=== PATIENT | male | born 1935 | race Caucasian/White ===

== ENCOUNTER 2023-01-08 10:01 | Emergency (ER) | payer OTHER ==
[~2023-01-08] VITALS: Ht 180.3 cm; Wt 92.5 kg
[2023-01-08 10:08] VITALS: BP 147/87
== END 2023-01-08 11:07 | disposition home or self-care (01) ==
LOC: ER 10:01
DX: R09.81 Nasal congestion (principal); R09.82 Postnasal drip; Z88.0 Allergy status to penicillin
CPT/HCPCS: 99282

== ENCOUNTER 2024-12-16 15:28 | Emergency (ER) | payer OTHER ==
[~2024-12-16] VITALS: Ht 188 cm; Wt 81.7 kg
[2024-12-16 15:32] VITALS: BP 157/94
== END 2024-12-16 15:37 | disposition home or self-care (01) ==
LOC: ER 15:28
DX: T81.89XA Other complications of procedures, not elsewhere classified, initial encounter (principal); Z85.820 Personal history of malignant melanoma of skin; Z88.0 Allergy status to penicillin
CPT/HCPCS: 99282

== ENCOUNTER 2025-06-15 11:08 | Emergency (ER) | payer OTHER ==
[~2025-06-15] VITALS: Ht 180.3 cm; Wt 90.7 kg
[2025-06-15 12:33] LABS: BASOPHILS ABSOLUTE AUTO 0.08 K/mm3 (0.00-0.23); BASOPHILS PERCENT AUTO 1 % (0-2); EOSINOPHILS ABSOLUTE AUTO 0.42 K/mm3 (0.00-0.68); EOSINOPHILS PERCENT AUTO 5 % (0-6); Hematocrit 39.1 % (37.0-53.0); Hemoglobin 14.0 g/dL (13.5-17.5); IMMATURE GRAN ABSOLUTE AUTO 0.05 K/mm3 (0.00-0.10); IMMATURE GRAN PERCENT AUTO 1 % (0-1); LYMPHOCYTES ABSOLUTE AUTO 0.93 K/mm3 (0.84-5.20); LYMPHOCYTES PERCENT AUTO 10 % (21-46); MONOCYTES ABSOLUTE AUTO 1.10 K/mm3 (0.16-1.47); MONOCYTES PERCENT AUTO 12 % (4-13); Mean Corpuscular HGB Conc 35.8 g/dL (31.5-36.5); Mean Corpuscular Volume 88 fL (80-100); NEUTROPHILS ABSOLUTE AUTO 6.82 K/mm3 (1.96-9.15); NEUTROPHILS PERCENT AUTO 73 % (41-73); NRBC ABSOLUTE 0.00 K/mm3 (0.00-0.02); NRBC Auto 0.0 /100 WBC (0.0-0.2); Platelet Count 266 K/mm3 (150-400); RDW Coefficient Variation 11.9 % (11.7-14.2); RDW Standard Deviation 38.4 fL (35.1-46.3)
[2025-06-15 12:48] LABS: D-Dimer, Quantitative 0.68 mg/L FEU (0.00-0.52); Prothrombin Time Results 11.4 Sec (9.7-11.5)
[2025-06-15 12:54] LABS: CORONAVIRUS COVID-19 AG Negative (NEGATIVE)
[2025-06-15 12:54] LABS: Alanine Aminotransfer (ALT/SGP 20.0 U/L (12-78); Albumin, Blood 3.0 g/dL (3.4-5.0); Albumin/Globulin Ratio 1.0 (0.8-1.8); Anion Gap 10.0 mmol/L (3-11); Aspartate Aminotrans (AST/SGOT 19.0 U/L (12-37); Bilirubin, Total 0.7 mg/dL (0.1-1.0); Blood Urea Nitrogen 16.0 mg/dL (8-24); CO2, Blood 25.0 mmol/L (21-32); Calcium, Blood 8.6 mg/dL (8.5-10.1); Chloride, Blood 93.0 mmol/L (98-108); Creatinine, Blood 0.93 mg/dL (0.60-1.20); Globulin, Blood 3.1 g/dL (2.2-4.0); Glucose, Blood 108.0 mg/dL (70-99); Potassium, Blood 4.1 mmol/L (3.5-5.5); Sodium, Blood 124.0 mmol/L (136-145); Total Protein, Blood 6.1 g/dL (6.4-8.2)
[2025-06-15 13:21] LABS: Source, Urine Clean Catch
[2025-06-15] MEDS ORDERED: NS 1,000 ML IV SCH (13:25)
[2025-06-15] MEDS ORDERED: Ondansetron HCl 2 MG / ML 2ML Vial IV ONE (13:25)
[2025-06-15 13:47] LABS: Bilirubin, Urine Neg (Neg); Color, Urine Yellow (P-Yellow); Glucose Qualitative, Urine Neg (Neg); Ketones, Urine 1+ (Neg); Leukocyte Esterase, Urine Neg (Neg); Protein, Urine Neg (Neg); Specific Gravity, Urine 1.020 (1.003-1.022); Urobilinogen, Urine NORM (Normal)
[2025-06-15] MEDS ORDERED: SODBIC650 PO (14:30)
[2025-06-15 15:00] VITALS: BP 134/80
== END 2025-06-15 15:02 | disposition home or self-care (01) ==
LOC: ER 11:08
PROVIDERS: Emergency Medicine
DX: E87.1 Hypo-osmolality and hyponatremia (principal); Z88.0 Allergy status to penicillin; Z79.2 Long term (current) use of antibiotics
CPT/HCPCS: 71045; 80053; 81003; 83880; 84484; 85025; 85379; 85610; 87428-QW; 96374; 99284-25; J2405; J7030

== ENCOUNTER 2025-06-20 15:01 | Inpatient (IN) | payer OTHER ==
[~2025-06-20] VITALS: Ht 180.3 cm; Wt 92.7 kg
[2025-06-20] VITALS (11 sets, daily range): BP systolic 107–198; BP diastolic 85–118
[~2025-06-20 15:01] MED LIST: SODBIC650 PO
[2025-06-20 15:49] LABS: BASOPHILS ABSOLUTE AUTO 0.05 K/mm3 (0.00-0.23); BASOPHILS PERCENT AUTO 1 % (0-2); EOSINOPHILS ABSOLUTE AUTO 0.27 K/mm3 (0.00-0.68); EOSINOPHILS PERCENT AUTO 3 % (0-6); Hematocrit 33.4 % (37.0-53.0); Hemoglobin 12.2 g/dL (13.5-17.5); IMMATURE GRAN ABSOLUTE AUTO 0.04 K/mm3 (0.00-0.10); IMMATURE GRAN PERCENT AUTO 1 % (0-1); LYMPHOCYTES ABSOLUTE AUTO 0.90 K/mm3 (0.84-5.20); LYMPHOCYTES PERCENT AUTO 11 % (21-46); MONOCYTES ABSOLUTE AUTO 1.27 K/mm3 (0.16-1.47); MONOCYTES PERCENT AUTO 16 % (4-13); Mean Corpuscular HGB Conc 36.5 g/dL (31.5-36.5); Mean Corpuscular Volume 84 fL (80-100); NEUTROPHILS ABSOLUTE AUTO 5.38 K/mm3 (1.96-9.15); NEUTROPHILS PERCENT AUTO 68 % (41-73); NRBC ABSOLUTE 0.00 K/mm3 (0.00-0.02); NRBC Auto 0.0 /100 WBC (0.0-0.2); Platelet Count 267 K/mm3 (150-400); RDW Coefficient Variation 11.9 % (11.7-14.2); RDW Standard Deviation 36.2 fL (35.1-46.3)
[2025-06-20 16:11] LABS: Alanine Aminotransfer (ALT/SGP 22.0 U/L (12-78); Albumin, Blood 2.7 g/dL (3.4-5.0); Albumin/Globulin Ratio 0.9 (0.8-1.8); Anion Gap 11.0 mmol/L (3-11); Aspartate Aminotrans (AST/SGOT 21.0 U/L (12-37); Bilirubin, Total 0.8 mg/dL (0.1-1.0); Blood Urea Nitrogen 9.0 mg/dL (8-24); CO2, Blood 23.0 mmol/L (21-32); Calcium, Blood 8.1 mg/dL (8.5-10.1); Chloride, Blood 88.0 mmol/L (98-108); Creatinine, Blood 0.93 mg/dL (0.60-1.20); Globulin, Blood 2.9 g/dL (2.2-4.0); Glucose, Blood 99.0 mg/dL (70-99); Potassium, Blood 4.1 mmol/L (3.5-5.5); Sodium, Blood 118.0 mmol/L (136-145); Total Protein, Blood 5.6 g/dL (6.4-8.2)
[2025-06-20] MEDS ORDERED: Ondansetron HCl 2 MG / ML 2ML Vial IV ONE (16:15)
[2025-06-20] MEDS ORDERED: NS 1,000 ML IV SCH (16:15)
[2025-06-20 17:27] LABS: Source, Urine Clean Catch
[2025-06-20 17:30] LABS: Bilirubin, Urine Neg (Neg); Color, Urine Yellow (P-Yellow); Glucose Qualitative, Urine Neg (Neg); Ketones, Urine 2+ (Neg); Leukocyte Esterase, Urine 2+ (Neg); Protein, Urine 1+ (Neg); Specific Gravity, Urine 1.015 (1.003-1.022); Urobilinogen, Urine NORM (Normal)
[2025-06-20 17:41] LABS: Source, Urine Clean Catch
[2025-06-20] MEDS ORDERED: FLU VACC TS2025(65UP)/MF59C/PF 45 MCG/0.5 ML SYRINGE IM SCH (17:50)
[2025-06-20 17:52] LABS: Bilirubin, Urine Neg (Neg); Color, Urine Yellow (P-Yellow); Glucose Qualitative, Urine Neg (Neg); Ketones, Urine 2+ (Neg); Leukocyte Esterase, Urine 2+ (Neg); Protein, Urine 1+ (Neg); Specific Gravity, Urine 1.015 (1.003-1.022); Urobilinogen, Urine NORM (Normal)
[2025-06-20 18:00] LABS: Red Blood Cells, Urine 0-2 /hpf (0-2)
[2025-06-20 19:19] LABS: Influenza A/2009-H1 Not Detected (NOT DETECT); SARS-Cov-2 (COVID-19), BioFire Not Detected (NOT DETECT)
--- NOTE | 2025-06-20 19:50 | NUR ---
ARRIVAL TO UNIT PT ARRIVED TO UNIT FROM ED VIA GOURNEY. PT ABLE TO STAND/PIVOT TO BED c 1 PERSON ASSIST. PT UNSTEADY OF FEET R/T WEAKNESS. A&O x4, RESPONDS TO QUESTIONS APPROPRIATELY, RAMPART. SPO2 >93% ON RA, PT DENIES SOB. HR NSR 90s, MAP >65, SBP 160-170s, PT DENIES CHEST PAIN/PRESSURE. PT REPORTS FREQUENCY c URINATION, MIN OUTPUT c PAIN/ITCHYNESS & "LEAKING". PT REPORT NO BM SINCE 06.17.25, PT ENDORSES NAUSEA c FULL MEALS, DENIES N/V AT THIS TIME. PT REPORTS CHRONIC BACK PAIN R/T PREVIOUS SURGERIES. CALL LIGHT IN REACH, BED IN LOWEST POSITION, ORIENTED TO UNIT, NO NEEDS STATED.
[2025-06-20] MEDS ORDERED: PRIM250 PO (20:42)
[2025-06-20] MEDS ORDERED: GABA100 PO (20:44)
[2025-06-20] MEDS ORDERED: ROPI1 PO (20:47)
[2025-06-20] MEDS ORDERED: TAMS.4ER PO (20:49)
[2025-06-20] MEDS ORDERED: LEVSOD100 PO (20:50)
[2025-06-20] MEDS ORDERED: FINA5 PO (20:51)
[2025-06-20] MEDS ORDERED: ERYT.5TO BOTHEYES (20:54)
[2025-06-20 21:00] LABS: Anion Gap 12.0 mmol/L (3-11); Blood Urea Nitrogen 10.0 mg/dL (8-24); CO2, Blood 22.0 mmol/L (21-32); Calcium, Blood 8.5 mg/dL (8.5-10.1); Chloride, Blood 88.0 mmol/L (98-108); Creatinine, Blood 0.96 mg/dL (0.60-1.20); Glucose, Blood 141.0 mg/dL (70-99); Potassium, Blood 4.1 mmol/L (3.5-5.5); Sodium, Blood 118.0 mmol/L (136-145)
[2025-06-20] MEDS ORDERED: Heparin Sodium,Porcine 5,000 UNIT/0.5 ML SDV SC SCH (21:00)
--- NOTE | 2025-06-20 21:28 | NUR ---
DR CONSULT AWARE OF PT NA @ 118. CONTINUE PLAN OF CARE. ORDER GIVEN FOR HYPERTENSION. PT COMPLAINT OF CONSTIPATION, BOWEL CARE PER EMAR. PT REPORTS ABD/URINARY PAIN, MD ORDER OXY PER EMAR. ABX ORDERED.
[2025-06-20] MEDS ORDERED: Labetalol HCL 5 MG/ML 4ML Injection (Single Dose) IV PRN (21:30)
[2025-06-20] MEDS ORDERED: Polyethylene Glycol 3350 17 gm PO SCH (21:35)
[2025-06-20] MEDS ORDERED: CefTRIAXone Sodium 1,000 MG in NS 100 ML IV SCH (21:35)
[2025-06-21] VITALS (30 sets, daily range): BP systolic 89–176; BP diastolic 44–111
[2025-06-21 05:20] LABS: Anion Gap 15.0 mmol/L (3-11); Blood Urea Nitrogen 17.0 mg/dL (8-24); CO2, Blood 20.0 mmol/L (21-32); Calcium, Blood 8.8 mg/dL (8.5-10.1); Chloride, Blood 91.0 mmol/L (98-108); Creatinine, Blood 1.64 mg/dL (0.60-1.20); Glucose, Blood 165.0 mg/dL (70-99); Potassium, Blood 4.4 mmol/L (3.5-5.5); Sodium, Blood 122.0 mmol/L (136-145)
--- NOTE | 2025-06-21 07:09 | NUR ---
ASSUMPTION OF CARE PT IS A&0X4, ANSWERS QUESTIONS AND FOLLOWS COMMANDS. PT IN NSR, MAP >65. HR IN 60-70S. PT IS ON RA, SPO2 >92%. PT HAS 2 PIVS, RWR AND LAC. 3% NS AT 30ML/HR. PUREWICK IN PLACE AND ATTACHED TO SUCTION. NO BM THIS AM. NO NEEDS EXPRESSED AT THIS TIME AND CALL LIGHT WITHIN REACH.
[2025-06-21] MEDS ORDERED: Erythromycin 0.5% Opth Oint 3.5 gm BOTHEYES PRN (07:15)
--- NOTE | 2025-06-21 12:34 | NUR ---
"Spiritual Care | Pt. Request Pt. is awake and welcomes my visit. Pt. is pleasant. Facilitated a life review and established rapport as we identified that we had many things in common. Considered matters of deedee and belief, Pt. verbalized his deedee story as a young man and his present deedee connections. Pt. displayed evidence of being encourage and requested this trip motor operator notify his nondenominational. Prayed wih the Pt. Pt. verbalized gratitude for the spiritual care visit. Pts. nondenominational was notified."
[2025-06-21] MEDS ORDERED: Naphazoline/Phenir Opth Soln 15 ml BOTHEYES PRN (17:10)
[2025-06-21 18:28] LABS: Anion Gap 13.0 mmol/L (3-11); Blood Urea Nitrogen 22.0 mg/dL (8-24); CO2, Blood 21.0 mmol/L (21-32); Calcium, Blood 8.7 mg/dL (8.5-10.1); Chloride, Blood 98.0 mmol/L (98-108); Creatinine, Blood 1.83 mg/dL (0.60-1.20); Glucose, Blood 122.0 mg/dL (70-99); Potassium, Blood 4.5 mmol/L (3.5-5.5); Sodium, Blood 127.0 mmol/L (136-145)
--- NOTE | 2025-06-21 19:20 | NUR ---
SHIFT SUMMARY: ASSUMED CARE OF PT AT 1350, PT IS ALERT AND ORIENTED X 4 ABLE TO FOLLOW COMMANDS AND COMMUNICATE NEED. PT DENIES ANY PAIN AT THIS TIME. PT REMAINS IN SR WITH HR IN THE 80'S, BP STABLE, DENIES CP/PRESSURE. PT ON RA WITH SPO2 ABOVE 92% NO RESP DISTRESS NOTED. PT TOLERATING PO INTAKE, DENIES NAUSEA. PT ON 1200ML FLUID RESTRICTION. CAPELLAN PATENT, DRAINING TO GRAVITY, PALE YELLOW URINE NOTED. NO BM THIS SHIFT, BOWEL CARE MEDS GIVEN PER OCT. BED AT LOWEST LEVEL, CALL LIGHT WITHIN REACH, PLAN OF CARE ONGOING.
--- NOTE | 2025-06-21 20:00 | NUR ---
ASSUMPTION OF CARE CARE OF PT ASSUMED FOLLOWING BEDSIDE SHIFT REPORT FROM DAY RN. PT LYING IN BED IN NO APPARENT DISTRESS. ALERT AND ORIENTED. SLEETMUTE. MILD CONFUSION/DECREASED SHORT TERM MEMORY PRESENT. AFEBRILE. NO PAIN. SINUS RHYTHM IN THE 60'S AND STABLE BP. RA SATURATIONS ARE > 92%. PT IS CONSTIPATED BUT WILL ONLY AGREE TO THE CURRENT, CONSERVATIVE BOWEL REGIMEN. CAPELLAN IN PLACE FOR RETENTION DRAINING URINE TO GRAVITY. WILL REVIEW AND CONTINUE PLAN OF CARE.
[2025-06-21] MEDS ORDERED: MELATONIN5 M1 PO (23:47)
[2025-06-22] VITALS (24 sets, daily range): BP systolic 100–174; BP diastolic 42–89
[2025-06-22 03:28] LABS: Hematocrit 30.7 % (37.0-53.0); Hemoglobin 11.2 g/dL (13.5-17.5); Mean Corpuscular HGB Conc 36.5 g/dL (31.5-36.5); Mean Corpuscular Volume 87 fL (80-100); NRBC ABSOLUTE 0.00 K/mm3 (0.00-0.02); NRBC Auto 0.0 /100 WBC (0.0-0.2); Platelet Count 263 K/mm3 (150-400); RDW Coefficient Variation 12.3 % (11.7-14.2); RDW Standard Deviation 39.1 fL (35.1-46.3)
[2025-06-22 03:46] LABS: Albumin, Blood 2.7 g/dL (3.4-5.0); Anion Gap 8 mmol/L (3-11); Blood Urea Nitrogen 20 mg/dL (8-24); CO2, Blood 24 mmol/L (21-32); Calcium, Blood 8.5 mg/dL (8.5-10.1); Chloride, Blood 103 mmol/L (98-108); Creatinine, Blood 1.36 mg/dL (0.60-1.20); Glucose, Blood 110 mg/dL (70-99); Magnesium, Blood 2.0 mg/dL (1.6-2.4); Phosphorus, Blood 3.2 mg/dL (2.5-4.9); Potassium, Blood 4.4 mmol/L (3.5-5.5); Sodium, Blood 131 mmol/L (136-145)
--- NOTE | 2025-06-22 07:23 | NUR ---
SHIFT SUMMARY PT LYING IN BED SLEEPING, AWAKES TO VOICE AND IS ALERT AND ORIENTED TO ALL, THOUGH HIS SHORT TERM MEMORY HAS CRACKS. AFEBRILE. MOVES EXTREMITIES WELL. USES CALL LIGHT. SINUS RHYTHM IN THE 60'S WITH STABLE BP. RA SATURATIONS WERE > 92%. NO CHEST PAIN/PRESSURE, SOB. PT ALSO DENIES AB PAIN; HE WAS ADMINISTERED BOWEL MEDS LAST NIGHT. PT HAS CAPELLAN IN PLACE FOR SEVERE RETENTION- OUTPUT WAS 4L. PT IS SALINE LOCKED. SODIUM THIS AM WAS 131. PT SAYS HE FEELS BETTER. BEDSIDE SHIFT REPORT GIVEN TO DAY RN.
[2025-06-22] MEDS ORDERED: UREA 15 GM POWD.PACK PO SCH (09:00)
--- NOTE | 2025-06-22 17:42 | NUR ---
SHIFT SUMMARY PT STATUS CHANGE TO MED NO TELEMETRY NEURO: A/O X4. CALLS APPROPRIATELY, INDEPENDENT BED MOBILITY. TIRED TODAY. DECLINED AMBULATION OR RECLINER CARDIAC: SR SBP 120-150S, HR 70-80S. PULM: LUNGS CLEAR TO AUSCULATION. SPO2 >95% ON RA. GI: SOFT ABDOMEN, DECREASED APPETITE, REPORTS SOME UNEASINESS IN HIS UPPER ABDOMEN BUT DENIES PAIN OR NAUSEA. +CONSTIPATION, BOWEL MEDICATIONS ADMINSITERED. : CAPELLAN IN PLACE DRAINING YELLOW URINE. SKIN: INTACT. PT LIVES ALONE AT HOME AND DOES NOT USE ANY AMBULATION DEVICES AT BASELINE. HE WAS 1 OF 10 CHILDEREN AND THE LAST LIVING OF HIS SIBLINGS. HE HAS 2 ADULT CHILDREN THAT LIVE IN [place], [place]. HE HAS BEEN IN CONTACT. HE ATTENDS [employer] LOCALLY AND HAS A GOOD [employer] COMMUNITY.
--- NOTE | 2025-06-22 20:30 | NUR ---
ASSUMPTION OF CARE: ASSUMED CARE AT START OF SHIFT (1899). REPORT RECEIVED FROM DAY SHIFT RN. PT IS DOING WELL AND RESTING IN BED. PT ALERT AND FOLLOWING COMMANDS. PT DENIES ANY PAIN, CP, OR SOB AT THIS TIME. LUNG SOUNDS ARE CLEAR AND EQUAL, ON RA WITH SPO2 > 95%. SINUS RYTHM WITH SBP: 110'S MAP >65 HR: 60'S. IV: LAC AND R FOREARM. CAPELLAN CATHETER IN PLACE AND DRAINING TO GRAVITY. LINES, CORDS, AND TUBES PLACED OUT OF REACH. CALL LIGHT PLACED WITHIN REACH.
[2025-06-23] VITALS (10 sets, daily range): BP systolic 117–170; BP diastolic 47–82
[2025-06-23 04:12] LABS: BASOPHILS ABSOLUTE AUTO 0.10 K/mm3 (0.00-0.23); BASOPHILS PERCENT AUTO 1 % (0-2); EOSINOPHILS ABSOLUTE AUTO 0.26 K/mm3 (0.00-0.68); EOSINOPHILS PERCENT AUTO 3 % (0-6); Hematocrit 34.8 % (37.0-53.0); Hemoglobin 12.4 g/dL (13.5-17.5); IMMATURE GRAN ABSOLUTE AUTO 0.03 K/mm3 (0.00-0.10); IMMATURE GRAN PERCENT AUTO 0 % (0-1); LYMPHOCYTES ABSOLUTE AUTO 1.19 K/mm3 (0.84-5.20); LYMPHOCYTES PERCENT AUTO 15 % (21-46); MONOCYTES ABSOLUTE AUTO 0.90 K/mm3 (0.16-1.47); MONOCYTES PERCENT AUTO 11 % (4-13); Mean Corpuscular HGB Conc 35.6 g/dL (31.5-36.5); Mean Corpuscular Volume 87 fL (80-100); NEUTROPHILS ABSOLUTE AUTO 5.69 K/mm3 (1.96-9.15); NEUTROPHILS PERCENT AUTO 70 % (41-73); NRBC ABSOLUTE 0.00 K/mm3 (0.00-0.02); NRBC Auto 0.0 /100 WBC (0.0-0.2); Platelet Count 267 K/mm3 (150-400); RDW Coefficient Variation 12.2 % (11.7-14.2); RDW Standard Deviation 39.6 fL (35.1-46.3)
[2025-06-23 04:36] LABS: Anion Gap 8.0 mmol/L (3-11); Blood Urea Nitrogen 24.0 mg/dL (8-24); CO2, Blood 27.0 mmol/L (21-32); Calcium, Blood 9.2 mg/dL (8.5-10.1); Chloride, Blood 98.0 mmol/L (98-108); Creatinine, Blood 0.98 mg/dL (0.60-1.20); Glucose, Blood 98.0 mg/dL (70-99); Potassium, Blood 4.3 mmol/L (3.5-5.5); Sodium, Blood 129.0 mmol/L (136-145)
--- NOTE | 2025-06-23 06:11 | NUR ---
SHIFT SUMMARY: PT IS DOING WELL AND RESTING IN BED. NO ACUTE CHANGES THROUGHT THE SHIFT. PT WAS ABLE TO SLEEP MOST OF THE NIGHT. VITAL SIGNS REMAIN STABLE. PERIPHERAL IV'S IN LAC AND R FOREARM. CAPELLAN CATHETER IN PLACE AND DRAINING TO GRAVITY. PT IS ABLE TO REPOSITION SELF IN BED. LINES, CORDS, AND TUBES PLACED OUT OF REACH. CALL LIGHT PLACED WITHIN REACH.
--- NOTE | 2025-06-23 15:43 | NUR ---
SPOKE WTIH DR GANDARA ON THE TELEPHONE. REVIEWED RECENT LABS AND DISCUSSED PT NURSING ASSESSMENT. RECIEVED ORDER TO INCREASE UREA NA 15MG TO TWICE DAILY. ORDER PLACED. ATTEMPTED TELEVISIT BUT UNABLE TO CONNECT VIA IPAD.
--- NOTE | 2025-06-23 18:39 | NUR ---
SHIFT SUMMARY NEURO: ALERT AND ORIENTED X4. CALLS APPROPRIATELY AND ABLE TO MAKE HIS NEEDS KNOWN. CARDIAC: SR SBP 120-170S. HR 70S. DENIED ANY CP OR DIZZINESS TODAY PULM: LUNGS CLEAR TO AUSCULATION. SPO2 >95% ON RA. GI: ABDOMEN IS SOFT. SOME DISCOMFORT THAT COMES AND GOES, MIDLINE BELOW RIBS. TO START FAMOTIDINE TOMORROW. HYPERACTIVE BOWEL TONES. ON BOWEL REGIMEN. DAY 5 NO BM. DECREASED APPEITE. +PASSING FLATUS : CAPELLAN REMOVED AT 1200, DUE TO VOID. BLADDER SCAN DONE AT 1730, 388ML. SKIN: INTACT. WALKED 1 LAP AROUND ICU EAST TODAY USING A FWW. GAIT APPEARED A BIT UNSTEADY. MINIMAL ASSISTANCE. NIECE CALLED AND CHECKED IN, UPDATES GIVEN PER PT.
[2025-06-23] MEDS ORDERED: UREA 15 GM POWD.PACK PO SCH (21:00)
--- NOTE | 2025-06-23 21:23 | NUR ---
ASSUMPTION OF CARE CARE OF PT ASSUMED FOLLOWING BEDSIDE SHIFT REPORT FROM DAY RN. PT LYING IN BED IN MILD DISTRESS DUE TO VOIDING URGENCY. CAPELLAN WAS REMOVED AT 1200 TODAY- MULTIPLE
[2025-06-24] VITALS: BP 132/70
[2025-06-24 03:38] LABS: Anion Gap 9.0 mmol/L (3-11); Blood Urea Nitrogen 36.0 mg/dL (8-24); CO2, Blood 28.0 mmol/L (21-32); Calcium, Blood 8.8 mg/dL (8.5-10.1); Chloride, Blood 96.0 mmol/L (98-108); Creatinine, Blood 0.92 mg/dL (0.60-1.20); Glucose, Blood 99.0 mg/dL (70-99); Potassium, Blood 4.3 mmol/L (3.5-5.5); Sodium, Blood 129.0 mmol/L (136-145)
[2025-06-24 03:51] LABS: Osmolality, Serum 279.0 mos/KG (275-300)
[2025-06-24 04:00] VITALS: BP 151/79
--- NOTE | 2025-06-24 07:32 | NUR ---
ASSUMPTION OF CARE RECEIVED REPORT FROM [facility] NURSE. PT IS A&OX4, FOLLOWS COMMANDS AND ANSWERS QUESTIONS. PT ON RA, SPO2>92%. HR IN 60S, MAP >65. PT DENIES CHEST PAIN. PT NOTES SOME EPIGASTRIC DISCOMFORT WITH EATING D/T CONSTIPATION. CAPELLAN CATH IN PLACE, PATENT AND DRAINING TO GRAVITY. SKIN INTEG WNL. NO NEEDS EXPRESSED AT THIS TIME AND CALL LIGHT WITHIN REACH.
--- NOTE | 2025-06-24 07:37 | NUR ---
SHIFT SUMMARY PT LYING IN BED SLEEPING, AWAKES TO VOICE AND IS ALERT AND ORIENTED TO ALL. AFEBRILE. PAIN WELL CONTROLLED WITH OCCASIONAL PRN OXYCODONE. MAEW. SINUS RHYTHM RATE OF 70-80, AND STABLE TO MILDY ELEVATED BP (SBP 150). O2 SATURATION > 92% ON RA. PT DENIES CHEST PAIN/PRESSURE AND SOB. PT REPORTS EPIGASTRIC PAIN X 3 WEEKS, IT FEELS LIKE WHEN HE EATS "THE FOOD HAS NOWHERE TO GO." PROVIDER WAS CALLED AND PROTONIX WAS ADDED TO FAMOTIDINE. PT ALSO GIVEN TUMS. PT HAS NOT HAD BM X 5 DAYS, IN SPITE OF MIRLAX AND COLACE. PROVIDER CALLED AND A FLEET ENEMA WAS ORDERED. PT ALSO REPORTED MILD NAUSEA BUT DID NOT WANT PHARMACEUTICAL TREATMENT FOR THAT. COUDE CATHETER WAS PLACED DURING SHIFT FOR RETENTION AND OUTPUT WAS 1200ML OF LV URINE. PLACEMENT WAS EASIER THAN ANTICIPATED, OPENING THE DOOR FOR POTENTIAL COUDE STRAIGHT CATHS FOLLOWING REMOVAL OF CURRENT URINARY CATHETER. BEDSIDE SHIFT REPORT GIVEN TO DAY RN.
[2025-06-24 08:00] VITALS: BP 157/93
--- NOTE | 2025-06-24 15:27 | NUR ---
TRANSFER NOTE: THIS RN TRANSPORTED PT TO ROOM 361 VIA WHEELCHAIR. PT A/OX4, NO ACUTE DISTRESS NOTED AT TIME OF TRANSFER. ABLE TO STAND/TRANSFER W/ SBA FOR LINE MANAGEMENT. ALL BELONGINGS TAKEN W/ PT.
[2025-06-24 15:35] VITALS: BP 130/86
--- NOTE | 2025-06-24 17:45 | NUR ---
SHIFT SUMMARY: PT ARRIVED FROM ICU THIS AFTERNOON. CAPELLAN IN PLACE FOR RETENTION. PT IS A 1 PERSON SBA. PT IS AOX4. PLAN I POSSIBLE DC IN THE MORNING.
[2025-06-24 20:26] VITALS: BP 123/66
[2025-06-25 05:17] LABS: Anion Gap 10.0 mmol/L (3-11); Blood Urea Nitrogen 41.0 mg/dL (8-24); CO2, Blood 26.0 mmol/L (21-32); Calcium, Blood 9.0 mg/dL (8.5-10.1); Chloride, Blood 95.0 mmol/L (98-108); Creatinine, Blood 1.12 mg/dL (0.60-1.20); Glucose, Blood 98.0 mg/dL (70-99); Potassium, Blood 4.3 mmol/L (3.5-5.5); Sodium, Blood 127.0 mmol/L (136-145)
[2025-06-25 05:52] VITALS: BP 113/73
[2025-06-25 07:37] VITALS: BP 124/84
[2025-06-25] MEDS ORDERED: FAMO20 PO (15:16)
[2025-06-25] MEDS ORDERED: UREAPRO454 GM PO (15:17)
[2025-06-25 15:36] VITALS: BP 113/84
--- NOTE | 2025-06-25 17:35 | NUR ---
DISCHARGE SUMMARY PT EDUCATED ON DISCHARGE PACKET AND NEW PRESCRIPTIONS. PT VERBALZIED UNDERSTANDING. CAPELLAN BAG REPLACED WITH LEG BAG. PT EDUCATED ON USAGE AND DEMONSTRATED USE BACK TO ME. IV'S REMOVED. PT HAS NO ONE TO [place] COMPTROLLER FROM HOSPITAL. PT HAD DRIVEN HIMSELF TO [place], WANTED A RIDE BACK TO [place] TO HIS VEHICLE. TAXI RIDE ARRANGED WITH DC SUNINE TAXI BY MYSELF. PT PAY. ONCE ARRANGED THEY GAVE ME AN ETA OF 15-20 MINUTES. PT BELONGINGS GATHERED AND ESCORTED DOWN TO PT WAITING AREA AT PT ENTRANCE TO WAIT FOR TAXI. APPT ARRANGED WITH UROLOGY PER DOCTOR ORDERS ON June. PT VERBALIZE UNDERSTANDING AND EDUCATED TO CALL TO MAKE AN APPT WITH PCP AND NEPHROLOGY, NUMBERS PROVIDED. NO NEW CONCERNS OR QUESTIONS PRIOR TO DC. I DID FOLLOW UP WITH SYSTEM[facility] MGR WHO TOLD ME [facility] WONT P[facility] PT [facility] UNTIL AFTER [place], PT CAN NOT DRIVE HOME IN [place]. SO TAXI ARRANGED PER PT REQUEST. SON UPDATED BY DOC AND SYSTEMS MGR BUT HE LIVES OUT OF STATE.
== END 2025-06-25 17:11 | disposition home health service (06) | DRG 644 ==
LOC: ER 15:01 → ICUE 17:49 → MEDS 06-24 15:15
PROVIDERS: Emergency Medicine; Hospitalist; Internal Medicine; Nurse Practitioner Acute Care; Student in an Organized Health Care Education/Training Program; ADMIT Internal Medicine
PROC: 0T9B70Z Drainage of Bladder with Drainage Device, Via Natural or Artificial Opening (ICD-10-PCS; principal; 2025-06-20)
PROC: 3E03329 Introduction of Other Anti-infective into Peripheral Vein, Percutaneous Approach (ICD-10-PCS; 2025-06-20)
PROC: 3E02340 Introduction of Influenza Vaccine into Muscle, Percutaneous Approach (ICD-10-PCS; 2025-06-20)
DX: E22.2 Syndrome of inappropriate secretion of antidiuretic hormone (principal); N13.30 Unspecified hydronephrosis; N17.9 Acute kidney failure, unspecified; R53.1 Weakness; E78.5 Hyperlipidemia, unspecified; G25.81 Restless legs syndrome; I10 Essential (primary) hypertension; N40.1 Benign prostatic hyperplasia with lower urinary tract symptoms; R33.8 Other retention of urine; K29.70 Gastritis, unspecified, without bleeding; T45.1X5A Adverse effect of antineoplastic and immunosuppressive drugs, initial encounter; Z88.0 Allergy status to penicillin; Z85.820 Personal history of malignant melanoma of skin; Z87.891 Personal history of nicotine dependence; Z79.890 Hormone replacement therapy; Z87.01 Personal history of pneumonia (recurrent); Z79.899 Other long term (current) drug therapy; Z23 Encounter for immunization
CPT/HCPCS: 0202U; 36415; 51703; 71046; 76770; 80048; 80053; 80069; 81001; 83735; 83880; 83930; 83935; 84295; 84300; 84443; 84484; 85025; 85027; 87086; 93005; 93010; 93971; 96361; 96374; 99285-25; A9270; J0696; J1644; J2405; J7030

== ENCOUNTER 2025-06-27 11:50 | Inpatient (IN) | payer OTHER ==
[~2025-06-27] VITALS: Ht 180.3 cm; Wt 86.2 kg
[~2025-06-27 11:50] MED LIST changes: +ERYT.5TO BOTHEYES; +FAMO20 PO; +FINA5 PO; +GABA100 PO; +LEVSOD100 PO; +MELATONIN5 M1 PO; +PRIM250 PO; +ROPI1 PO; +TAMS.4ER PO; +UREAPRO454 GM PO
[2025-06-27 12:22] LABS: BASOPHILS ABSOLUTE AUTO 0.07 K/mm3 (0.00-0.23); BASOPHILS PERCENT AUTO 1 % (0-2); EOSINOPHILS ABSOLUTE AUTO 0.62 K/mm3 (0.00-0.68); EOSINOPHILS PERCENT AUTO 7 % (0-6); Hematocrit 37.7 % (37.0-53.0); Hemoglobin 13.0 g/dL (13.5-17.5); IMMATURE GRAN ABSOLUTE AUTO 0.07 K/mm3 (0.00-0.10); IMMATURE GRAN PERCENT AUTO 1 % (0-1); LYMPHOCYTES ABSOLUTE AUTO 1.02 K/mm3 (0.84-5.20); LYMPHOCYTES PERCENT AUTO 12 % (21-46); MONOCYTES ABSOLUTE AUTO 1.27 K/mm3 (0.16-1.47); MONOCYTES PERCENT AUTO 15 % (4-13); Mean Corpuscular HGB Conc 34.5 g/dL (31.5-36.5); Mean Corpuscular Volume 90 fL (80-100); NEUTROPHILS ABSOLUTE AUTO 5.50 K/mm3 (1.96-9.15); NEUTROPHILS PERCENT AUTO 64 % (41-73); NRBC ABSOLUTE 0.00 K/mm3 (0.00-0.02); NRBC Auto 0.0 /100 WBC (0.0-0.2); Platelet Count 303 K/mm3 (150-400); RDW Coefficient Variation 12.2 % (11.7-14.2); RDW Standard Deviation 40.2 fL (35.1-46.3)
[2025-06-27 12:44] LABS: Source, Urine Foley catheter
[2025-06-27 12:46] LABS: Alanine Aminotransfer (ALT/SGP 42.0 U/L (12-78); Albumin, Blood 3.0 g/dL (3.4-5.0); Albumin/Globulin Ratio 1.0 (0.8-1.8); Anion Gap 7.0 mmol/L (3-11); Aspartate Aminotrans (AST/SGOT 33.0 U/L (12-37); Bilirubin, Total 0.4 mg/dL (0.1-1.0); Blood Urea Nitrogen 31.0 mg/dL (8-24); CO2, Blood 28.0 mmol/L (21-32); Calcium, Blood 8.5 mg/dL (8.5-10.1); Chloride, Blood 98.0 mmol/L (98-108); Creatinine, Blood 1.32 mg/dL (0.60-1.20); Globulin, Blood 2.9 g/dL (2.2-4.0); Glucose, Blood 118.0 mg/dL (70-99); Magnesium, Blood 2.5 mg/dL (1.6-2.4); Potassium, Blood 3.9 mmol/L (3.5-5.5); Sodium, Blood 129.0 mmol/L (136-145); Total Protein, Blood 5.9 g/dL (6.4-8.2)
[2025-06-27 12:51] LABS: Bilirubin, Urine Neg (Neg); Color, Urine Amber (P-Yellow); Glucose Qualitative, Urine Neg (Neg); Ketones, Urine 1+ (Neg); Leukocyte Esterase, Urine 2+ (Neg); Protein, Urine 3+ (Neg); Specific Gravity, Urine 1.025 (1.003-1.022); Urobilinogen, Urine NORM (Normal)
[2025-06-27 12:58] LABS: Red Blood Cells, Urine 50-100 /hpf (0-2)
[2025-06-27] MEDS ORDERED: CefTRIAXone Sodium 1,000 MG in NS 100 ML IV ONE (13:45)
--- NOTE | 2025-06-27 14:12 | NUR ---
Pt. is in ED3 and welcomed my visit. Pt. is known to this dock manager from his previous admission. Considered matters of home and health as well as deedee and belief. Pt. displayed evidence of having been encouraged. Prayed with the Pt. Pt. verbalized gratitude for the spiritual care visit and welcomed this dock manager to visit once he got admitted.
[2025-06-27] MEDS ORDERED: Prochlorperazine Edisylate 10 mg Vial IV PRN (14:50)
[2025-06-27] MEDS ORDERED: LYTES IV SCH (14:55)
[2025-06-27] MEDS ORDERED: SODIUM CHLORIDE IV SCH (14:55)
[2025-06-27] MEDS ORDERED: MULTIVITAMINS IV SCH (14:55)
[2025-06-27] MEDS ORDERED: Sodium Chloride 105 MEQ in Aa 4.25%/Calcium/Lytes/D5w 1,000 ML IV SCH (14:55)
[2025-06-27] MEDS ORDERED: [UNRECOGNIZED DRUG - OTHER] IV SCH (14:55)
[2025-06-27] MEDS ORDERED: CALCIUM IV SCH (14:55)
[2025-06-27] MEDS ORDERED: D5W IV SCH (14:55)
[2025-06-27] MEDS ORDERED: FLU VACC TS2025(65UP)/MF59C/PF 45 MCG/0.5 ML SYRINGE IM SCH (15:00)
[2025-06-27 17:13] VITALS: BP 99/81
--- NOTE | 2025-06-27 18:27 | NUR ---
Pt arrived to 332 via gurney from ED, report was obtained, pt able to stand and tx to bed, he is a/ox4, pleasant and cooperative with care, he states he lives alone, lungs are clear t/o, a bit dim in bases, resp even and unlabored, no cough noted, on r/a, hrr, no edema noted, ppp+1, cap refill<3 sec, vs stable, afebrile, piv to rw, site is clear and patent, btx4, abd flat soft nontender, voids via parkinson that was replaced in ER, urine is yellow with sediment, skin c/w/d, frail, maew, damian, oriented to room layout and call system, call light in reach.
[2025-06-27 19:54] VITALS: BP 110/52
--- NOTE | 2025-06-28 04:20 | NUR ---
SHIFT SUMMARY PT ALERT ORIENTED X 4 ABLE TO VERBALIZE NEEDS CALLS APPROPRATELY. REMAINS ON A 1200 FREE WATER RESTRICTION. HE HAS A CAPELLAN CATHETER DRAINING TEA COLORED URINE WITH ONLY 450CC OF OUTPUT. REMAINS ON ROCEPHIN ORDERED FOR UTI. REMAINS ON CLINIMAX AT 100. HIS BP WAS 110/52. HES SCHEDULED TO HAVE A BARIUM SWALLOW DONE. REMAINS VERY WEAK AND C/O NUMBNESS TO HIS FINGERS WHICH HE STATED IS CHRONIC AND HIS MD SAID ITS PROBABLY CARPAL TUNNEL. RESTING IN BED AT THIS TIME WITH CALL LIGHT IN REACH
[2025-06-28 04:41] LABS: BASOPHILS ABSOLUTE AUTO 0.07 K/mm3 (0.00-0.23); BASOPHILS PERCENT AUTO 1 % (0-2); EOSINOPHILS ABSOLUTE AUTO 0.58 K/mm3 (0.00-0.68); EOSINOPHILS PERCENT AUTO 7 % (0-6); Hematocrit 33.7 % (37.0-53.0); Hemoglobin 11.8 g/dL (13.5-17.5); IMMATURE GRAN ABSOLUTE AUTO 0.06 K/mm3 (0.00-0.10); IMMATURE GRAN PERCENT AUTO 1 % (0-1); LYMPHOCYTES ABSOLUTE AUTO 1.10 K/mm3 (0.84-5.20); LYMPHOCYTES PERCENT AUTO 14 % (21-46); MONOCYTES ABSOLUTE AUTO 1.31 K/mm3 (0.16-1.47); MONOCYTES PERCENT AUTO 16 % (4-13); Mean Corpuscular HGB Conc 35.0 g/dL (31.5-36.5); Mean Corpuscular Volume 90 fL (80-100); NEUTROPHILS ABSOLUTE AUTO 5.02 K/mm3 (1.96-9.15); NEUTROPHILS PERCENT AUTO 62 % (41-73); NRBC ABSOLUTE 0.00 K/mm3 (0.00-0.02); NRBC Auto 0.0 /100 WBC (0.0-0.2); Platelet Count 297 K/mm3 (150-400); RDW Coefficient Variation 12.3 % (11.7-14.2); RDW Standard Deviation 40.0 fL (35.1-46.3)
[2025-06-28 04:49] VITALS: BP 120/54
[2025-06-28 05:13] LABS: Anion Gap 9.0 mmol/L (3-11); Blood Urea Nitrogen 24.0 mg/dL (8-24); CO2, Blood 26.0 mmol/L (21-32); Calcium, Blood 8.4 mg/dL (8.5-10.1); Chloride, Blood 100.0 mmol/L (98-108); Creatinine, Blood 1.2 mg/dL (0.60-1.20); Glucose, Blood 112.0 mg/dL (70-99); Potassium, Blood 4.4 mmol/L (3.5-5.5); Sodium, Blood 131.0 mmol/L (136-145)
[2025-06-28 07:51] VITALS: BP 121/64
[2025-06-28] MEDS ORDERED: UREA 15 GM POWD.PACK PO SCH (09:00)
[2025-06-28] MEDS ORDERED: Enoxaparin 40 MG/0.4 ML SYR SC SCH (09:00)
[2025-06-28] MEDS ORDERED: CefTRIAXone Sodium 1,000 MG in NS 100 ML IV SCH (09:00)
--- NOTE | 2025-06-28 11:19 | NUR ---
"Spiritual Care | Pt. request Pt. is wake in bed when he welcomes my visit. Pt. is pleasant and is known to this rug cutter helper from previous visits. Facilitated an update. Pt verbalized how he had seen the doctor and the speech therapist and expected to be having an endoscopy. Considered matters of deedee and belief. Pt. requested a bible. Prayed with the Pt. Provided the Pt. with a NT/Psalms. Pt. verbalized gratitude for the spiritual care visit and the bible."
[2025-06-28] MEDS ORDERED: NS 250 ML IV PRN (11:20)
--- NOTE | 2025-06-28 19:16 | NUR ---
SHIFT SUMMARY PT A&OX4. PT ADMITED DUE TO SEPSIS. PT REPORTS NO CHEST PAIN/SOB. PT SBA. PT HAD CT OF ABD TODAY. SPEECH THERAPY DID EVAL, "REPORTED PT CONDITION MAY BE GI RELATED." PT TAKES MEDS WHOLE WITH WATER. ORAL CARE COMPLETE. PT VSS. PT REPORTS ABD PAIN WHEN SWALLOWING. PT HAS CLINIMIX RUNNING AT 100ML/HR. PT GETTING IV ANTIBIOTICS. DR. HERNANDEZ CONSULTED. PLAN IS TO DO A EDG IN AM. PT NPO AT MIDNIGHT. PT HAS CAPELLAN FOR RETENTION, DRAINING ADEQUATE WITH NO DEPENDENT LOOPS. PT HAS A FREE WATER RESTRICT OF 1200. PT TOLERATING. PT HAS POOR INTAKE. PT HAS NEW IV IN L FA INSERTED BY SENIOR SALES REPRESENTATIVE. PT IN BED, BED LOCKED, LOWEST POSITION, CALL LIGHT IN REACH, CALLS APPROPRIATE.
[2025-06-28 19:34] VITALS: BP 139/66
--- NOTE | 2025-06-29 03:31 | NUR ---
SHIFT SUMMARY PT IS A&OX4, PLEASANT AND COOPERATIVE WITH CARE. PT HAS BEEN NPO SINCE MIDNIGHT FOR AN EGD, LATER TODAY. PT HAS A CAPELLAN CATHTER THAT IS DRAINING YELLOW URINE, DRAINING IN A COLLECTION BAG TO GRAVITY. PT HAS NS WITH ADDITIVES RUNNING AT 100MLs. PT STATES HE HAS "DIFFICULTY SWALLOWING SOLID FOODS", HENCE THE REASON FOR THE EGD. PT DID NOT REPORT PAIN THIS SHIFT. PT RESTED IN BED WITH EVEN AND UNLABORED RESPIRATIONS, CALL LIGHT WITHIN REACH.
[2025-06-29 03:56] VITALS: BP 132/53
[2025-06-29 05:26] LABS: BASOPHILS ABSOLUTE AUTO 0.06 K/mm3 (0.00-0.23); BASOPHILS PERCENT AUTO 1 % (0-2); EOSINOPHILS ABSOLUTE AUTO 0.46 K/mm3 (0.00-0.68); EOSINOPHILS PERCENT AUTO 7 % (0-6); Hematocrit 32.6 % (37.0-53.0); Hemoglobin 11.3 g/dL (13.5-17.5); IMMATURE GRAN ABSOLUTE AUTO 0.05 K/mm3 (0.00-0.10); IMMATURE GRAN PERCENT AUTO 1 % (0-1); LYMPHOCYTES ABSOLUTE AUTO 1.01 K/mm3 (0.84-5.20); LYMPHOCYTES PERCENT AUTO 14 % (21-46); MONOCYTES ABSOLUTE AUTO 1.28 K/mm3 (0.16-1.47); MONOCYTES PERCENT AUTO 18 % (4-13); Mean Corpuscular HGB Conc 34.7 g/dL (31.5-36.5); Mean Corpuscular Volume 89 fL (80-100); NEUTROPHILS ABSOLUTE AUTO 4.14 K/mm3 (1.96-9.15); NEUTROPHILS PERCENT AUTO 59 % (41-73); NRBC ABSOLUTE 0.00 K/mm3 (0.00-0.02); NRBC Auto 0.0 /100 WBC (0.0-0.2); Platelet Count 291 K/mm3 (150-400); RDW Coefficient Variation 12.0 % (11.7-14.2); RDW Standard Deviation 38.8 fL (35.1-46.3)
[2025-06-29 05:47] LABS: Anion Gap 9.0 mmol/L (3-11); Blood Urea Nitrogen 28.0 mg/dL (8-24); CO2, Blood 24.0 mmol/L (21-32); Calcium, Blood 8.6 mg/dL (8.5-10.1); Chloride, Blood 100.0 mmol/L (98-108); Creatinine, Blood 1.01 mg/dL (0.60-1.20); Glucose, Blood 105.0 mg/dL (70-99); Potassium, Blood 4.2 mmol/L (3.5-5.5); Sodium, Blood 129.0 mmol/L (136-145)
[2025-06-29 07:31] VITALS: BP 149/80
--- NOTE | 2025-06-29 07:43 | NUR ---
History, Chart, Medications and Allergies reviewed before start of procedure. Patient confirms NPO status and agrees with scheduled surgery. Pre-Op teaching done. Pt verbalizes understanding. Lungs clear T/O to Auscultation.
--- NOTE | 2025-06-29 07:50 | NUR ---
06/29/25 0750 Luz Maria Norris History, Chart, Medications and Allergies reviewed before start of procedure. MONITOR INTACT WITH CONTINUOUS PULSE OXIMETRY, CONTINUOUS END TITAL CO2, 3-LEAD EKG AND INTERMITTENT BLOOD PRESSURE.See Anesthesia record FROM DR. JAMES.
[2025-06-29 08:34] VITALS: BP 122/77
[2025-06-29 09:10] VITALS: BP 115/66
[2025-06-29 15:17] VITALS: BP 134/54
[2025-06-29] MEDS ORDERED: Pantoprazole Sodium 40 MG Injection IV SCH (16:30)
--- NOTE | 2025-06-29 18:09 | NUR ---
SHIFT SUMMARY PT IS A/OX4. 1 PERSON ASSIST. EGD COMPLETED THIS MORNING. VERY POOR INTAKE THIS SHIFT. CONTINUING CLINIMIX PER MAR. CAPELLAN IN PLACE DRAINING CLEAR, YELLOW URINE TO GRAVITY. PT REPORTING NAUSEA WITHOUT VOMITING THIS AFTERNOON, MEDICATED PER MAR. PT IS COOPERATIVE WITH CARE AND CALLS APPROPRIATELY USING THE CALL LIGHT.
[2025-06-29 19:29] VITALS: BP 142/76
--- NOTE | 2025-06-30 00:15 | NUR ---
RETAIL FIELD REPRESENTATIVE PROVIDER NOTIFIED OF BILATERAL HAND AND R ARM SWELLING. PT STATES HE FEELS LIKE HIS HANDS AND RIGHT ARM ARE GETTING "TIGHTER" SINCE THE BEGINNING OF SHIFT. RUE ELEVATED ON PILLOWS, AND LEFT HAND IS ELEVATED WELL. NO IMMEDIATE ORDERS, BUT DR. MARRERO STATED HE WOULD LOOK THROUGH THE PT'S CHART. PT DENIES FEELING SOB, ON ROOM AIR WITH SATS WNL.
[2025-06-30 03:35] VITALS: BP 114/54
[2025-06-30 04:49] LABS: BASOPHILS ABSOLUTE AUTO 0.07 K/mm3 (0.00-0.23); BASOPHILS PERCENT AUTO 1 % (0-2); EOSINOPHILS ABSOLUTE AUTO 0.44 K/mm3 (0.00-0.68); EOSINOPHILS PERCENT AUTO 7 % (0-6); Hematocrit 33.5 % (37.0-53.0); Hemoglobin 11.8 g/dL (13.5-17.5); IMMATURE GRAN ABSOLUTE AUTO 0.04 K/mm3 (0.00-0.10); IMMATURE GRAN PERCENT AUTO 1 % (0-1); LYMPHOCYTES ABSOLUTE AUTO 0.95 K/mm3 (0.84-5.20); LYMPHOCYTES PERCENT AUTO 14 % (21-46); MONOCYTES ABSOLUTE AUTO 1.21 K/mm3 (0.16-1.47); MONOCYTES PERCENT AUTO 18 % (4-13); Mean Corpuscular HGB Conc 35.2 g/dL (31.5-36.5); Mean Corpuscular Volume 88 fL (80-100); NEUTROPHILS ABSOLUTE AUTO 4.10 K/mm3 (1.96-9.15); NEUTROPHILS PERCENT AUTO 60 % (41-73); NRBC ABSOLUTE 0.00 K/mm3 (0.00-0.02); NRBC Auto 0.0 /100 WBC (0.0-0.2); Platelet Count 271 K/mm3 (150-400); RDW Coefficient Variation 12.0 % (11.7-14.2); RDW Standard Deviation 38.7 fL (35.1-46.3)
[2025-06-30 05:33] LABS: Magnesium, Blood 2.0 mg/dL (1.6-2.4)
[2025-06-30 05:34] LABS: Anion Gap 10.0 mmol/L (3-11); Blood Urea Nitrogen 31.0 mg/dL (8-24); CO2, Blood 23.0 mmol/L (21-32); Calcium, Blood 8.6 mg/dL (8.5-10.1); Chloride, Blood 101.0 mmol/L (98-108); Creatinine, Blood 1.05 mg/dL (0.60-1.20); Glucose, Blood 113.0 mg/dL (70-99); Phosphorus, Blood 4.3 mg/dL (2.5-4.9); Potassium, Blood 4.1 mmol/L (3.5-5.5); Sodium, Blood 130.0 mmol/L (136-145)
--- NOTE | 2025-06-30 06:03 | NUR ---
SHIFT SUMMARY PT C/O BILATERAL HAND AND RUE SWELLING- STATING "IT FEELS TIGHTER" WHEN REASSESSED AT MIDNIGHT. BIT SANDER PROVIDER NOTIFIED (SEE PRIOR NOTE). BUE'S ELEVATED WITH PILLOWS. PT WITHOUT MUCH APPETITE DURING THE NIGHT. MEDICATED FOR NAUSEA WITH COMPAZINE PER EMAR. IV CLINIMIX CONTINUES TO INFUSE PER ORDER. CAPELLAN DRAINING YELLOW URINE. PT WELL WITHIN HIS FREE WATER RESTRICTION. PT SLEPT INTERMITTENTLY DURING THE NIGHT.
[2025-06-30 07:53] VITALS: BP 134/74
[2025-06-30] MEDS ORDERED: PANT20 PO (11:02)
[2025-06-30] MEDS ORDERED: GABA100 PO (11:02)
[2025-06-30] MEDS ORDERED: Sucralfate 1000MG / 10ML UD BTL PO SCH (11:30)
--- NOTE | 2025-06-30 11:31 | NUR ---
SHIFT/DISCHARGE SUMMARY: PATIENT A/OX4, PLEASANT AND COOPERATIVE c CARE. PATIENT DENIES CP/PRESSURE, SOB, N/V AND DIZZINESS. PATIENT RECEIVED SCHEDULED MEDS PER EMAR. PATIENT ATE 75% OF HIS BREAKFAST, DENIES ANY DISCOMFORT OR DIFFICULTY SWALLOWING. DR. HERNANDEZ CAME BY THIS MORNING, DISCUSSED c PLAN OF CARE TO F/U AT HER OFFICE. PER DR. HERNANDEZ HER OFFICE WILL CALL HIM FOR F/U APPOINTMENT. PATIENT VERBALIZED UNDERSTANDING c NO FURTHER QUESTIONS. PATIENT HAS CAPELLAN FOR RETENTION, PATENT DRAINING YELLOW URINE TO GRAVITY. PATIENT SHOWERED THIS MORNING c MINIMAL ASSIST FROM DAIRY QUALITY ASSURANCE OFFICER, AMBULATES c SBA/FWW. VITAL SIGNS REVIEWED. PIV DC'D. PATIENT DISCHARGE HOME c CAPELLAN. DISCHARGE INSTRUCTIONS PACKET GIVEN TO PATIENT. PATIENT EDUCATED ON ADMITTING DX'S OF PEPTIC ULCER, S/S, TX, NEW RX AND TO F/U c PCP, GI AND NEPHROLOGY. PATIENT VERBALIZED UNDERSTANDING. RX WAS FAXED TO [facility] PER PATIENT REQUEST. ALL PERSONAL BELONGINGS WERE SENT c PATIENT. PATIENT LEFT THE ROOM AT 1130, TRANSPORTED VIA BY MADELAINE TO PATIENT ENTRANCE-RIDE AWAITING FOR HIM.
[2025-07-02] MEDS ORDERED: HYDROCODONE-AC1 EA18 PO (16:25)
[2025-07-02] MEDS ORDERED: ONDA4ODT MM (16:25)
[2025-07-03] MEDS ORDERED: ARTHRITIS PAIN150 GM TOP (01:37)
[2025-07-03] MEDS ORDERED: ERYT.5TO BOTHEYES (01:40)
[2025-07-03] MEDS ORDERED: FAMO20 PO (01:41)
[2025-07-03] MEDS ORDERED: ZADITOR5 M1 BOTHEYES (01:42)
[2025-07-03] MEDS ORDERED: LIDO700A20 TOP (01:44)
[2025-07-03] MEDS ORDERED: ZESTRIL40 MG PO (01:45)
[2025-07-03] MEDS ORDERED: ONDA4ODT MM (01:47)
[2025-07-03] MEDS ORDERED: ROPI1 PO (01:48)
== END 2025-06-30 11:30 | disposition home or self-care (01) | DRG 384 ==
LOC: ER 11:50 → MEDS 14:46
PROVIDERS: Emergency Medicine; ADMIT Internal Medicine
PROC: 3E02340 Introduction of Influenza Vaccine into Muscle, Percutaneous Approach (ICD-10-PCS; 2025-06-27)
PROC: 0DB78ZX Excision of Stomach, Pylorus, Via Natural or Artificial Opening Endoscopic, Diagnostic (ICD-10-PCS; principal; 2025-06-28)
PROC: 3E03329 Introduction of Other Anti-infective into Peripheral Vein, Percutaneous Approach (ICD-10-PCS; 2025-06-28)
DX: K27.9 Peptic ulcer, site unspecified, unspecified as acute or chronic, without hemorrhage or perforation (principal); E22.2 Syndrome of inappropriate secretion of antidiuretic hormone; E44.0 Moderate protein-calorie malnutrition; N13.30 Unspecified hydronephrosis; N13.8 Other obstructive and reflux uropathy; N17.9 Acute kidney failure, unspecified; N39.0 Urinary tract infection, site not specified; E87.20 Acidosis, unspecified; K44.9 Diaphragmatic hernia without obstruction or gangrene; K29.70 Gastritis, unspecified, without bleeding; E78.5 Hyperlipidemia, unspecified; C43.62 Malignant melanoma of left upper limb, including shoulder; N40.1 Benign prostatic hyperplasia with lower urinary tract symptoms; G25.81 Restless legs syndrome; D63.1 Anemia in chronic kidney disease; E03.9 Hypothyroidism, unspecified; N18.31 Chronic kidney disease, stage 3a; R13.10 Dysphagia, unspecified; E86.0 Dehydration; T45.1X5A Adverse effect of antineoplastic and immunosuppressive drugs, initial encounter; I12.9 Hypertensive chronic kidney disease with stage 1 through stage 4 chronic kidney disease, or unspecified chronic kidney disease; Z46.82 Encounter for fitting and adjustment of non-vascular catheter; Z79.899 Other long term (current) drug therapy; Z88.0 Allergy status to penicillin; Z79.890 Hormone replacement therapy; Z98.890 Other specified postprocedural states; Z68.26 Body mass index [BMI] 26.0-26.9, adult; Z23 Encounter for immunization
CPT/HCPCS: 36415; 51702; 71045; 71260; 74177; 80048; 80053; 81001; 82947; 83605; 83735; 84100; 85025; 87086; 92610; 93005; 93010; 96365; 99285-25; A9270; J0696; J0780; J1650; J2470; J2704; J7050; J7120; J7131; Q9967